=== PATIENT | female | born 1990 | race Two or more races ===

== ENCOUNTER 2022-06-18 12:11 | Emergency (ER) | payer OTHER ==
[~2022-06-18] VITALS: Ht 162.6 cm; Wt 79.4 kg
--- NOTE | 2022-06-18 12:11 | NUR ---
TO ER CHAIR 1. BIBS C/O L THUMB INJURY S/P FALLING 3 WEEKS AGO. PAIN 7/10 ON PAIN SCALE.
[2022-06-18 12:15] VITALS: BP 110/62
--- NOTE | 2022-06-18 13:12 | NUR ---
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 PT LEFT WITHOUT SIGNING AMA PAPERS.
--- NOTE | 2022-06-18 13:14 | NUR ---
PT LEFT WITHOUT BEING SEEN BY
== END 2022-06-18 13:25 | disposition left against medical advice (07) ==
LOC: ER 12:28
DX: Z53.21 Procedure and treatment not carried out due to patient leaving prior to being seen by health care provider (principal)